=== PATIENT | male | born 1980 | race Caucasian/White ===

== ENCOUNTER 2021-08-26 09:53 | Emergency (ER) | payer OTHER ==
[~2021-08-26] VITALS: Ht 175.3 cm; Wt 74.8 kg
[2021-08-26] MEDS ORDERED: NORFLEX100MG PO (13:30)
[2021-08-26] MEDS ORDERED: KETO10TA2 PO (13:30)
== END 2021-08-26 13:46 | disposition home or self-care (01) ==
LOC: ER 09:53
DX: R51.9 Headache, unspecified (principal); Z20.822 Contact with and (suspected) exposure to COVID-19